=== PATIENT | female | born 1995 | race African-American/Black ===

== ENCOUNTER 2021-05-18 18:11 | Emergency (ER) | payer SELFPAY ==
[~2021-05-18] VITALS: Ht 160 cm; Wt 63.0 kg
[2021-05-18 18:14] VITALS: BP 126/78
== END 2021-05-18 19:21 | disposition left against medical advice (07) ==
LOC: ER 18:11
DX: N85.8 Other specified noninflammatory disorders of uterus (principal)
CPT/HCPCS: 99283